=== PATIENT | male | born 1975 | race Caucasian/White ===

== ENCOUNTER 2020-08-15 07:16 | Day surgery (SDC) | payer OTHER ==
[~2020-08-15 07:16] MED LIST: PROPOFOL INJ 200 MG/20 ML VIAL IV ONE
--- OUTSIDE RECORDS SUMMARY | 2020-08-15 07:19 | XMS REPORT ---
:1975 Author Organization [facility] Address [facility] [place] [address] [place] [id number] Care Team Providers Name Role Phone Shanel Ahmadi Attending Clinician Unavailable VINAYAK DIETZ Attending Clinician Unavailable Allergies, Adverse Reactions, Alerts This patient has no known allergies or adverse reactions. Medications This patient has no known medications. Problems Condition Condition Condition Status Onset Resolution Last Treatin g Comments Name Details Category Date Date Treatment Clinician Date Tension Tension Problem Active headache headache Acute Acute Problem Active headache headache Procedures Procedure Date / Time Performed Performing Clinician Devi e OFFICE/OUTPATIENT VISIT [facility] 2020-02-15 08:30:00 Results Test Description Test Time Test Comments Text Results Atomic Results Result Comments SARS-CoV-2, PARI\S\ 2020-08-12 08:45:00 Test Item Value Reference Range Comments SARS-CoV-2, PARI (test code = 19223-2) Not Detected Not Detect ed COMPREHENSIVE METABOLIC [id number] 09:30:00 Test Item Value Reference Range Comments POTASSIUM (test code = 25223473) 4.7 mmol/L 3.5-5.3 ALKALINE PHOSPHATASE (test code = 45 U/L 36-130 05860417) ALBUMIN (test code = 38492406) 4.6 g/dL 3.6-5.1 SODIUM (test code = 08267180) 140 mmol/L 135-146 GLOBULIN (test code = 02372293) 2.5 g/dL (calc) 1.9-3.7 ALT (test code = 60529228) 15 U/L 9-46 eGFR NON-AFR. ZIMBABWEAN (test code = 105 mL/min/1.73m2 > OR = 60 14913751) CHLORIDE (test code = 32436577) 104 mmol/L 98-110 AST (test code = 83696617) 20 U/L 10-40 PROTEIN, TOTAL (test code = 91234516) 7.1 g/dL 6.1-8.1 GLUCOSE (test code = 10740160) 89 mg/dL 65-99 BUN/CREATININE RATIO (test code = NOT APPLICABLE (calc) 6-22 71858699) CREATININE (test code = 41942618) 0.88 mg/dL 0.60-1.35 CARBON DIOXIDE (test code = 41174537) 27 mmol/L 20-32 CALCIUM (test code = 18939421) 9.5 mg/dL 8.6-10.3 ALBUMIN/GLOBULIN RATIO (test code = 1.8 (calc) 1.0-2.5 47036140) BILIRUBIN, TOTAL (test code = 0.6 mg/dL 0.2-1.2 75320038) UREA NITROGEN (BUN) (test code = 19 mg/dL 7-25 74355172) eGFR (test code = 122 mL/min/1.73m2 > OR = 60 98637440) LIPID PANEL, [id number] 09:30:00 Test Item Value Reference Range Comments CHOL/HDLC RATIO (test code = 96106468) 6.7 (calc) <5.0 TRIGLYCERIDES (test code = 78938952) 191 mg/dL <150 HDL CHOLESTEROL (test code = 47341275) 53 mg/dL > OR = 40 LDL-CHOLESTEROL (test code = 85644294) 264 mg/dL (calc) CHOLESTEROL, TOTAL (test code = 65100590) 354 mg/dL <200 NON HDL CHOLESTEROL (test code = 96918701) 301 mg/dL (calc) <130 Assessments Condition Name Status Diagnosis Date Treating Clinici an Mixed hyperlipidemia Active Gastro-esophageal reflux disease without Active esophagitis Other hypertrophic osteoarthropathy, Active multiple sites Body mass index (BMI) 27.0-27.9, adult Active Encounters Start End Encounter Admission Attending Care Care Encounter Date/Time Date/Time Type Type Clinicians Facility Department ID 2020-02-15 2020-02-15 Outpatient SHANTE AhmadiSaroj [place] 0 [id number] 08:30:00 08:30:00 [facility] [id number] s [id number] [facility], 2020-01-11 2020-01-11 Emergency ED [facility] [id number] 03:03:00 04:56:00 VINAYAK 25 Payers Payer Name Policy Type Policy Number Effective Date Expiration D ate Social History Smoking Status Start Date Stop Date Never smoker Social History Observation Description Sex Male Vital Signs Vital Name Observation Time Observation Value Comments WEIGHT 2020-01-11 03:15:00 83.6000 kg HEIGHT 2020-01-11 03:15:00 172.143196 cm Weight 2020-01-11 03:15:00 184.31 [lb_av] BMI (Body Mass Index) 2020-01-11 03:15:00 28.0 kg/m2
[2020-08-15 11:54] VITALS: BP 122/67
--- NOTE | 2020-08-15 12:43 | Operative Report ---
Operative Report DATE OF SURGERY: 08/15/20 Operative Report: The risks benefits and alternatives of the procedure explained to the patient in detail and informed consent is obtained.A GIF Olympus video scope was inserted into the patient's mouth and hypopharynx, the esophagus is identified intubated and insufflated ,the scope was then advanced through the esophagus stomach and duodenum, retroflexion maneuver is done the esophagus stomach and first and second portions of the duodenum examined PREOPERATIVE DIAGNOSIS: Gastroesophageal reflux disease. Epigastric pain POSTOPERATIVE DIAGNOSIS: Gastritis status post biopsy. Esophagitis versus Chatterjee's status post biopsy OPERATION: EGD with biopsy SURGEON: DANNY CH ANESTHESIA: LMAC TISSUE REMOVED OR ALTERED: As noted above. COMPLICATIONS: None. ESTIMATED BLOOD LOSS: None. INTRAOPERATIVE FINDINGS: As noted above. PROCEDURE: Patient tolerated the procedure well. No immediate postprocedure complications are noted. Patient is discharged in good condition. Discharge date 08/15/2020. Discharge diet: Regular. Discharge activity: Regular. 2 to 3-week follow-up to discuss findings. Patient is instructed to call the office or proceed to the emergency room should there be any further problems questions. Wait on the pathology.
== END 2020-08-15 08:45 | disposition home or self-care (01) ==
LOC: OROUT 07:16
PROVIDERS: ATTEND Internal Medicine Gastroenterology
DX: K29.50 Unspecified chronic gastritis without bleeding (principal); K21.00 Gastro-esophageal reflux disease with esophagitis, without bleeding; R60.0 Localized edema; E78.5 Hyperlipidemia, unspecified; Z79.899 Other long term (current) drug therapy; Z80.0 Family history of malignant neoplasm of digestive organs; Z87.19 Personal history of other diseases of the digestive system
CPT/HCPCS: 43239; 88305 ×2; 00731; J2704; 731